=== PATIENT | female | born 1985 | race Caucasian/White ===

== ENCOUNTER 2019-05-24 21:58 | Inpatient (IN) | payer MEDICARE, MEDICAID ==
[~2019-05-24] VITALS: Ht 165.1 cm; Wt 84.4 kg
[~2019-05-24 21:58] MED LIST: AMBIEN10 MG ORAL; CIPROFLOXACIN500 M2 ORAL; DIVALPROEX SOD250 M1 PO; DIVALPROEX SOD500 M2 PO; QUETIAPINE FUMA50 MG ORAL
[2019-05-24 22:05] VITALS: BP 96/60
[2019-05-24 22:10] VITALS: BP 96/60
[2019-05-24 22:35] LABS: BASOPHILS % (AUTO) 0.8 % (0.0-2.0); HEMATOCRIT 36.8 % (37.0-47.0); LYMPHOCYTES % (AUTO) 45.3 % (20.0-45.0); MEAN CORPUSCULAR VOLUME 86 FL (80-99); MONOCYTES % (AUTO) 10.6 % (1.0-10.0); NEUTROPHILS % (AUTO) 42.3 % (45.0-75.0); PLATELET COUNT 247 K/UL (150-450); RED BLOOD COUNT 4.25 M/UL (4.20-5.40); RED CELL DISTRIBUTION WIDTH 12.3 % (11.6-14.8); WHITE BLOOD COUNT 5.8 K/UL (4.8-10.8)
--- NOTE | 2019-05-24 22:43 | NUR ---
ED Nurse Note: Patient was BIBA from [facility] due to agressive behavioral complain. Patient presented happy, laughing, talkactive. AAO x4, VSS at this time, skin is dry warm to touch.
[2019-05-24 23:00] LABS: ANION GAP 4 mmol/L (5-15); BLOOD UREA NITROGEN 26 mg/dL (7-18); CALCIUM 8.9 MG/DL (8.5-10.1); CARBON DIOXIDE 30 MMOL/L (21-32); CHLORIDE 103 MMOL/L (98-107); CREATININE 1.3 MG/DL (0.55-1.30); POTASSIUM 3.8 MMOL/L (3.5-5.1); SODIUM 137 MMOL/L (136-145)
[2019-05-24 23:01] LABS: APPEARANCE,URINE CLEAR; BILIRUBIN, URINE NEGATIVE (NEGATIVE); COLOR,URINE PALE YELLOW; GLUCOSE, URINE (UA) NEGATIVE (NEGATIVE); KETONES,URINE 1+ (NEGATIVE); LEUKOCYTE ESTERASE ,URINE 3+ (NEGATIVE); NITRITE,URINE NEGATIVE (NEGATIVE); PH,URINE 6 (4.5-8.0); PROTEIN,URINE 1+ (NEGATIVE); UROBILINOGEN,URINE NORMAL MG/DL (0.0-1.0)
[2019-05-24 23:04] LABS: ALANINE AMINOTRANSFERASE 14 U/L (12-78); ALBUMIN 3.5 G/DL (3.4-5.0); ALBUMIN/GLOBULIN RATIO 0.9 (1.0-2.7); ALKALINE PHOSPHATASE 45 U/L (46-116); ASPARTATE AMINO TRANSFERASE 11 U/L (15-37); BILIRUBIN,TOTAL 0.2 MG/DL (0.2-1.0)
--- NOTE | 2019-05-24 23:15 | Emergency Room Report ---
History of Present Illness General Chief Complaint: Behavioral Complaint Source: Patient, Medical Record, EMS Present Illness HPI This is a 34-year-old female who is a resident at a [facility] facility. She was sent to the ER with chief complaint of psychiatric evaluation. She has a history of schizophrenia. She was noted to have increased behavior, being hypersexual, shouting, yelling and hitting staff. Here patient is calm. She denies any complaint. No nausea no vomiting. No fever chills but no chest pain. Similar symptom in the past. 3 weeks ago she was seen at [facility]. Per EMS, patient is not taking her psychiatric medication. Allergies: Coded Allergies: HALOPERIDOL (Unverified Allergy, Unknown, 05/09/14) RISPERIDONE (Unverified Allergy, Unknown, 05/09/14) Patient History Past Medical History: see triage record, old chart reviewed, schizophrenia Past Surgical History: none Family History: none Social History: other Now: No Immunizations: UTD, other Reviewed Nursing Documentation: PMH: Agreed; PSxH: Agreed Nursing Documentation-PMH Hx Cardiac Problems: No - Hyperlipidemia, Anemia History Of Psychiatric Problem: Yes - Bipolar, Schizophrenia Review of Systems ENT: Denies: sore throat Cardiovascular: Denies: chest pain, palpitations Gastrointestinal/Abdominal: Denies: nausea, vomiting, diarrhea Musculoskeletal: Denies: back problems Skin: Denies: rash Neurological: Denies: HERNANDEZ, seizures All Other Systems: negative except mentioned in HPI Physical Exam Vital Signs Date Time Temp Pulse Resp B/P (MAP) Pulse Ox O2 Delivery O2 Flow Rate FiO2 05/24/19 21:50 98.6 110 16 96/60 (72) 98 Room Air Vitals unremarkable Sp02 EP Interpretation: reviewed, normal General Appearance: alert/responsive, no apparent distress, non-toxic Head: normocephalic, atraumatic Eyes: PERRL, EOMI ENT: oropharynx normal Neck: supple/symm/no masses Respiratory: effort normal, no rhonchi, no wheezing Cardiovascular: no murmur, gallop, rub Gastrointestinal: non-tender, no mass, non-distended, no rebound/guarding, normal bowel sounds Musculoskeletal: gait & station normal Neurologic: oriented x3, sensory intact, motor strength/tone normal Skin: no rash, normal palpation Medical Decision Making Diagnostic Impression: Primary Impression: Behavioral disorder ER Course Patient presents with a behavioral disorder and aggressiveness. No evidence of any infection. She was redirectable here. No evidence of drug use. Better after dose of Zyprexa. I discussed the case with Dr. Rivero who will admit and will get psych consult. Last Vital Signs Date Time Temp Pulse Resp B/P (MAP) Pulse Ox O2 Delivery O2 Flow Rate FiO2 05/24/19 22:05 110 16 Room Air 05/24/19 22:05 98.6 96/60 98 Status: improved Disposition: ADMITTED INPATIENT Condition: Serious Referrals: Fede Rivero DO (PCP) Camacho Dickinson MD May 24, 2019 23:15
--- NOTE | 2019-05-24 23:40 | NUR ---
NURSE NOTES: Pt received from ER, calm at the moment and asking for food, explained that I have to get admitting orders, no c/o pain or signs of distress, able to make needs known, ambulatory, no skin issues, will continue to monitor.
[2019-05-24] MEDS ORDERED: Miralax 17gm pkt ORAL PRN (23:45)
[2019-05-24] MEDS ORDERED: Zolpidem 5mg tab ORAL PRN (23:45)
[2019-05-24] MEDS ORDERED: Morphine Sulfate 2mg/ml Inj(IV/IM USE ONLY) IVP PRN (23:45)
[2019-05-24] MEDS ORDERED: LORazepam Inj 2mg/ml 1ml IV PRN (23:45)
--- NOTE | 2019-05-24 23:58 | NUR ---
ED Nurse Note: Patient was admited to the [facility] due to behavioral complain. AAO x4, VSS at this time , skin is dry warm to touch. Patient was transfered to the unit via gurney, with all belongings.
[2019-05-25] VITALS: BP 110/61
[2019-05-25 04:00] VITALS: BP 129/73
--- NOTE | 2019-05-25 07:00 | NUR ---
HAND-OFF: Report given to YESSENIA Lou.
--- NOTE | 2019-05-25 07:40 | NUR ---
NURSE NOTES: Nurse report given by SULTANA Campos. Patient's anxious and pacing along the hallway. Denies pain, no s/s of distress or SOB. Patient pulled out IV site at night according to SULTANA Campos and refused to have IV reinserting. Ambulating well. Will continue to monitor closely.
--- NOTE | 2019-05-25 07:45 | NUR ---
HAND-OFF: Report given to SULTANA Gunter.
[2019-05-25 08:00] VITALS: BP 129/82
[2019-05-25] MEDS: Depakote ER 500mg tab ORAL SCH ×2 (09:00→18:00)
--- NOTE | 2019-05-25 10:00 | NUR ---
NURSE NOTES: Patient wanders around the hallway and refused to stay in her room. Attempted to go into other patients room and tried to remove her clothes. Reeducated and reoriented the patient. She agreed to keep her clothes on but refused to stay in the room. Charged nurse is aware.
--- NOTE | 2019-05-25 11:15 | History and Physical Report ---
DATE OF ADMISSION: 05/24/2019 DATE AND TIME SEEN: 05/25/2019 at 9 a.m. CONSULTANTS: 1. Lashell Zimmerman M.D. 2. Kartik Rand M.D. CHIEF COMPLAINT: Agitation and aggressive behavior. BRIEF HISTORY: This is a 34-year-old female from [facility], presented with above-mentioned diagnoses, admitted to medical floor for further treatment. Currently, walking hallway, slightly confused, but calm. No complaint. REVIEW OF SYSTEMS: No chest pain. No shortness of breath. No nausea, vomiting, or diarrhea. PAST MEDICAL HISTORY: Hypertension and psych history. PAST SURGICAL HISTORY: None. MEDICATIONS: Include , Seroquel, morphine, polyethylene glycol, lorazepam, zolpidem, and Zyprexa. ALLERGIES: Haldol and risperidone. SOCIAL HISTORY: No smoking. Positive alcohol. No intravenous drug abuse. FAMILY HISTORY: Noncontributory. PHYSICAL EXAMINATION: GENERAL: Slightly calm in hallway, oriented x3, no acute distress. VITAL SIGNS: Temperature is 98 degrees, pulse 90, respirations 19, blood pressure 129/73. CARDIOVASCULAR: No murmurs. LUNGS: Distant and clear. ABDOMEN: Bowel sounds positive. Nontender. Nondistended. EXTREMITIES: No cyanosis, clubbing, or edema. NEUROLOGIC: The patient's cranial nerves II through XII grossly intact. Deep tendon reflexes 2+. Muscle strength 4/5. LABORATORY DATA: Labs at this time show CBC is normal. BMP show BUN of 26, otherwise AST 11, alkaline phosphatase 49, otherwise normal. Urinalysis is 3+ leukocyte esterase. Urine tox is salicylate 1.3. ASSESSMENT: 1. Agitation. 2. Aggressive behavior. 3. Hypertension. 4. UTI. PLAN: 1. Antibiotics per Infectious Disease. 2. Psych treatment. 3. Dietary followup. 4. Transfer to psych. 5. We will continue to follow the patient. Fede Rivero D.O. DR: ALISE JOB#: [id number] CC:
[2019-05-25 12:00] VITALS: BP 108/73
[2019-05-25 16:00] VITALS: BP 110/77
--- NOTE | 2019-05-25 19:00 | NUR ---
HAND-OFF: Report given to SULTANA Campos. Plan of care endorsed.
--- NOTE | 2019-05-25 19:20 | NUR ---
NURSE NOTES: Pt received walking up and down the hallway, no c/o pain or signs of distress, no signs of aggressive behavior or agitation, will continue to monitor, received report that pt refused all medication
--- NOTE | 2019-05-25 19:47 | Consultation ---
History of Present Illness General Chief Complaint: Behavioral Complaint Present Illness Allergies: Coded Allergies: HALOPERIDOL (Unverified Allergy, Unknown, 05/09/14) RISPERIDONE (Unverified Allergy, Unknown, 05/09/14) Medication History Scheduled Ciprofloxacin Hcl* (Ciprofloxacin Hcl*), 500 MG ORAL Q12H Divalproex Sodium (Divalproex Sodium Er), 250 MG PO BID, (Reported) Divalproex Sodium (Divalproex Sodium Er), 500 MG PO BID, (Reported) Quetiapine Fumarate* (Quetiapine Fumarate*), 100 MG ORAL BID, (Reported) Scheduled PRN Zolpidem Tartrate* (Ambien*), 10 MG ORAL BEDTIME PRN for Restlessness Patient History Healthcare decision maker Resuscitation status Full Code Advanced Directive on File Physical Exam Last 24 Hour Vital Signs Date Time Temp Pulse Resp B/P (MAP) Pulse Ox O2 Delivery O2 Flow Rate FiO2 05/25/19 16:00 98.0 78 19 110/77 (88) 97 05/25/19 12:00 96.0 73 19 108/73 (85) 96 05/25/19 09:00 Room Air 05/25/19 08:00 97.4 79 19 129/82 (98) 99 05/25/19 04:00 98.6 90 19 129/73 (91) 96 05/25/19 00:00 97.7 94 19 110/61 (77) 96 05/24/19 23:48 Room Air 05/24/19 22:10 98.6 78 16 96/60 98 Room Air 05/24/19 22:10 98.6 16 96/60 98 Room Air 05/24/19 22:05 110 16 Room Air 05/24/19 22:05 98.6 16 96/60 98 Room Air 05/24/19 21:50 98.6 110 16 96/60 (72) 98 Room Air Intake and Output 05/24/19 05/25/19 18:59 06:59 Intake Total 1020 ml Balance 1020 ml Intake Oral 1020 ml # Voids 1 Laboratory Tests Test 05/24/19 22:25 White Blood Count 5.8 K/UL (4.8-10.8) Red Blood Count 4.25 M/UL (4.20-5.40) Hemoglobin 13.0 G/DL (12.0-16.0) Hematocrit 36.8 % (37.0-47.0) L Mean Corpuscular Volume 86 FL (80-99) Mean Corpuscular Hemoglobin 30.5 PG (27.0-31.0) Mean Corpuscular Hemoglobin Concent 35.3 G/DL (32.0-36.0) Red Cell Distribution Width 12.3 % (11.6-14.8) Platelet Count 247 K/UL (150-450) Mean Platelet Volume 6.2 FL (6.5-10.1) L Neutrophils (%) (Auto) 42.3 % (45.0-75.0) L Lymphocytes (%) (Auto) 45.3 % (20.0-45.0) H Monocytes (%) (Auto) 10.6 % (1.0-10.0) H Eosinophils (%) (Auto) 1.0 % (0.0-3.0) Basophils (%) (Auto) 0.8 % (0.0-2.0) Urine Color Pale yellow Urine Appearance Clear Urine pH 6 (4.5-8.0) Urine Specific Bradford 1.015 (1.005-1.035) Urine Protein 1+ (NEGATIVE) H Urine Glucose (UA) Negative (NEGATIVE) Urine Ketones 1+ (NEGATIVE) H Urine Blood Negative (NEGATIVE) Urine Nitrite Negative (NEGATIVE) Urine Bilirubin Negative (NEGATIVE) Urine Urobilinogen Normal MG/DL (0.0-1.0) Urine Leukocyte Esterase 3+ (NEGATIVE) H Urine RBC 0-2 /HPF (0 - 2) Urine WBC 2-4 /HPF (0 - 2) Urine Squamous Epithelial Cells Moderate /LPF (NONE/OCC) H Urine Bacteria Few /HPF (NONE) Urine HCG, Qualitative Negative (NEGATIVE) Sodium Level 137 MMOL/L (136-145) Potassium Level 3.8 MMOL/L (3.5-5.1) Chloride Level 103 MMOL/L (98-107) Carbon Dioxide Level 30 MMOL/L (21-32) Anion Gap 4 mmol/L (5-15) L Blood Urea Nitrogen 26 mg/dL (7-18) H Creatinine 1.3 MG/DL (0.55-1.30) Estimat Glomerular Filtration Rate 47.5 mL/min (>60) Glucose Level 104 MG/DL (74-106) Calcium Level 8.9 MG/DL (8.5-10.1) Total Bilirubin 0.2 MG/DL (0.2-1.0) Aspartate Amino Transf (AST/SGOT) 11 U/L (15-37) L Alanine Aminotransferase (ALT/SGPT) 14 U/L (12-78) Alkaline Phosphatase 45 U/L (46-116) L Total Protein 7.4 G/DL (6.4-8.2) Albumin 3.5 G/DL (3.4-5.0) Globulin 3.9 g/dL Albumin/Globulin Ratio 0.9 (1.0-2.7) L Salicylates Level 1.3 ug/mL (2.8-20) L Urine Opiates Screen Negative (NEGATIVE) Acetaminophen Level < 2 MCG/ML (10-30) L Urine Barbiturates Screen Negative (NEGATIVE) Phencyclidine (PCP) Screen Negative (NEGATIVE) Urine Amphetamines Screen Negative (NEGATIVE) Urine Benzodiazepines Screen Negative (NEGATIVE) Urine Cocaine Screen Negative (NEGATIVE) Urine Marijuana (THC) Screen Negative (NEGATIVE) Serum Alcohol < 3 mg/dL Microbiology Date/Time Source Procedure Growth Status 05/25/19 04:00 Rectum Received Height (Feet): 5 Height (Inches): 5.00 Weight (Pounds): 186 Medications Current Medications Medications (Trade) Dose Ordered Sig/Cherie Route PRN Reason Start Time Stop Time Status Last Admin Dose Admin Acetaminophen (Tylenol) 650 mg Q4H PRN ORAL fever 05/24/19 23:45 06/23/19 23:44 Dextrose (Dextrose 50%) STAT PRN IV Hypoglycemia 05/24/19 23:45 06/23/19 23:44 Divalproex Sodium (Depakote ER) 500 mg BID ORAL 05/25/19 09:00 06/24/19 08:59 Lorazepam (Ativan 2mg/ml 1ml) 0.5 mg Q4H PRN IV For Anxiety 05/24/19 23:45 05/31/19 23:44 Morphine Sulfate (Morphine Sulfate) 1 mg Q4H PRN IVP For Pain 05/24/19 23:45 05/31/19 23:44 Ondansetron HCl (Zofran) 4 mg Q6H PRN IVP Nausea & Vomiting 05/24/19 23:45 06/23/19 23:44 Polyethylene Glycol (Miralax) 17 gm HSPRN PRN ORAL Constipation 05/24/19 23:45 06/23/19 23:44 Quetiapine Fumarate (SEROquel) 100 mg BID ORAL 05/25/19 09:00 06/24/19 08:59 Zolpidem Tartrate (Ambien) 5 mg HSPRN PRN ORAL Insomnia 05/24/19 23:45 05/31/19 23:44 Kartik Rand MD May 25, 2019 19:47
--- NOTE | 2019-05-25 20:50 | NUR ---
NURSE NOTES: Pt walking up and down the hallway partially naked, refusing to put on proper clothing, she offered a male patient a juice and was upset calling me names because I explained to her that she can't go into the male patient's room.
--- NOTE | 2019-05-26 04:00 | NUR ---
NURSE NOTES: Dr. Zimmerman was informed of pt's increasingly aggressive behavior, refusal of all medications, walking around the unit partially naked, endanger of elopement going to [facility] and refusing to come back, Kenneth Simmons called, security on the floor, Dr. Zimmerman Ok for a sitter and to see the patient.
[2019-05-26] MEDS ORDERED: LORazepam Inj 2mg/ml 1ml IV PRN (05:00)
--- NOTE | 2019-05-26 07:27 | NUR ---
HAND-OFF: Report given to SULTANA Zhang.
--- NOTE | 2019-05-26 07:55 | NUR ---
NURSE NOTES: Received pt walking around the hallway. No c/o of pain/distress. Sitter on the hallway with the patient. Received report that pt refused all medication. Will continue to monitor
--- NOTE | 2019-05-26 08:58 | General Progress Note ---
Assessment/Plan Problem List: (1) UTI (urinary tract infection) ICD Codes: N39.0 - Urinary tract infection, site not specified SNOMED: 66706276 (2) HTN (hypertension) ICD Codes: I10 - Essential (primary) hypertension SNOMED: 51090633 (3) Behavioral disorder ICD Codes: F91.9 - Conduct disorder, unspecified SNOMED: 997640368 Status: stable, progressing Assessment/Plan: abx psyc tx psyc transfer cbc bmp am Subjective Constitutional: Reports: weakness Allergies: Coded Allergies: HALOPERIDOL (Unverified Allergy, Unknown, 05/09/14) RISPERIDONE (Unverified Allergy, Unknown, 05/09/14) All Systems: reviewed and negative except above Subjective sl anxious in room Objective Last 24 Hour Vital Signs Date Time Temp Pulse Resp B/P (MAP) Pulse Ox O2 Delivery O2 Flow Rate FiO2 05/25/19 21:00 Room Air 05/25/19 16:00 98.0 78 19 110/77 (88) 97 05/25/19 12:00 96.0 73 19 108/73 (85) 96 05/25/19 09:00 Room Air Intake and Output 05/25/19 05/26/19 19:00 07:00 Intake Total 1250 ml 600 ml Balance 1250 ml 600 ml Intake Oral 1250 ml 600 ml # Voids 3 Height (Feet): 5 Height (Inches): 5.00 Weight (Pounds): 186 General Appearance: confused EENT: normal ENT inspection Neck: normal alignment Cardiovascular: normal peripheral pulses, normal rate, regular rhythm Respiratory/Chest: chest wall non-tender, lungs clear, normal breath sounds Abdomen: normal bowel sounds, non tender, soft Extremities: normal inspection Edema: no edema noted Arm (L), no edema noted Arm (R), no edema noted Leg (L), no edema noted Leg (R), no edema noted Pedal (L), no edema noted Pedal (R), no edema noted Generalized Neurologic: motor weakness Skin: normal pigmentation, warm/dry Fede Rivero DO May 26, 2019 08:58
[2019-05-26] MEDS: Depakote ER 500mg tab ORAL SCH ×2 (09:20→18:00)
[2019-05-26 10:22] LABS: BASOPHILS % (AUTO) 0.6 % (0.0-2.0); EOSINOPHILS % (AUTO) 0.4 % (0.0-3.0); HEMOGLOBIN 13.2 G/DL (12.0-16.0); LYMPHOCYTES % (AUTO) 38.8 % (20.0-45.0); MEAN CORPUSCULAR VOLUME 89 FL (80-99); MONOCYTES % (AUTO) 12.8 % (1.0-10.0); NEUTROPHILS % (AUTO) 47.4 % (45.0-75.0); PLATELET COUNT 232 K/UL (150-450); RED BLOOD COUNT 4.38 M/UL (4.20-5.40); RED CELL DISTRIBUTION WIDTH 12.4 % (11.6-14.8); WHITE BLOOD COUNT 5.6 K/UL (4.8-10.8)
[2019-05-26 10:34] LABS: ANION GAP 6 mmol/L (5-15); BLOOD UREA NITROGEN 17 mg/dL (7-18); CALCIUM 10.4 MG/DL (8.5-10.1); CARBON DIOXIDE 29 MMOL/L (21-32); CHLORIDE 103 MMOL/L (98-107); POTASSIUM 3.5 MMOL/L (3.5-5.1); SODIUM 138 MMOL/L (136-145)
[2019-05-26] MEDS ORDERED: LORazepam Inj 2mg/ml 1ml IM PRN ×2 (11:00→16:00)
[2019-05-26 12:00] VITALS: BP 118/82
--- NOTE | 2019-05-26 13:43 | Pulmonology Progress Note ---
Assessment/Plan Problems: (1) Behavioral disorder (2) HTN (hypertension) (3) Behavioral disorder Assessment/Plan doing better no new complains behavior controlled Subjective ROS Limited/Unobtainable: No Constitutional: Reports: no symptoms HEENT: Repors: no symptoms Respiratory: Reports: no symptoms Allergies: Coded Allergies: HALOPERIDOL (Unverified Allergy, Unknown, 05/09/14) RISPERIDONE (Unverified Allergy, Unknown, 05/09/14) Objective Last 24 Hour Vital Signs Date Time Temp Pulse Resp B/P (MAP) Pulse Ox O2 Delivery O2 Flow Rate FiO2 05/26/19 12:00 97.0 106 20 118/82 (94) 96 05/26/19 09:00 Room Air 05/25/19 21:00 Room Air 05/25/19 16:00 98.0 78 19 110/77 (88) 97 Intake and Output 05/25/19 05/26/19 19:00 07:00 Intake Total 1250 ml 600 ml Balance 1250 ml 600 ml Intake Oral 1250 ml 600 ml # Voids 3 General Appearance: WD/WN HEENT: normocephalic, atraumatic Respiratory/Chest: chest wall non-tender, lungs clear Abdomen: normal bowel sounds, soft, non tender Genitourinary: normal external genitalia Skin: no rash Microbiology Date/Time Source Procedure Growth Status 05/25/19 04:00 Rectum Received Laboratory Tests 05/26/19 10:10: White Blood Count 5.6, Red Blood Count 4.38, Hemoglobin 13.2, Hematocrit 39.0, Mean Corpuscular Volume 89, Mean Corpuscular Hemoglobin 30.1, Mean Corpuscular Hemoglobin Concent 33.8, Red Cell Distribution Width 12.4, Platelet Count 232, Mean Platelet Volume 6.4L, Neutrophils (%) (Auto) 47.4, Lymphocytes (%) (Auto) 38.8, Monocytes (%) (Auto) 12.8H, Eosinophils (%) (Auto) 0.4, Basophils (%) ( Auto) 0.6, Sodium Level 138, Potassium Level 3.5, Chloride Level 103, Carbon Dioxide Level 29, Anion Gap 6, Blood Urea Nitrogen 17, Creatinine 1.0, Estimat Glomerular Filtration Rate > 60, Glucose Level 101, Calcium Level 10.4H Current Medications Medications (Trade) Dose Ordered Sig/Cherie Route PRN Reason Start Time Stop Time Status Last Admin Dose Admin Acetaminophen (Tylenol) 650 mg Q4H PRN ORAL fever 05/24/19 23:45 06/23/19 23:44 Dextrose (Dextrose 50%) STAT PRN IV Hypoglycemia 05/24/19 23:45 06/23/19 23:44 Divalproex Sodium (Depakote ER) 500 mg BID ORAL 05/25/19 09:00 06/24/19 08:59 05/26/19 09:20 Lorazepam (Ativan 2mg/ml 1ml) 1 mg Q6H PRN IM For Anxiety 05/26/19 11:00 06/02/19 04:59 05/26/19 12:58 Morphine Sulfate (Morphine Sulfate) 1 mg Q4H PRN IVP For Pain 05/24/19 23:45 05/31/19 23:44 Ondansetron HCl (Zofran) 4 mg Q6H PRN IVP Nausea & Vomiting 05/24/19 23:45 06/23/19 23:44 Polyethylene Glycol (Miralax) 17 gm HSPRN PRN ORAL Constipation 05/24/19 23:45 06/23/19 23:44 Quetiapine Fumarate (SEROquel) 100 mg BID ORAL 05/25/19 09:00 06/24/19 08:59 05/26/19 09:00 Zolpidem Tartrate (Ambien) 5 mg HSPRN PRN ORAL Insomnia 05/24/19 23:45 05/31/19 23:44 Kartik Rand MD May 26, 2019 13:43
--- NOTE | 2019-05-26 13:57 | Consultation ---
History of Present Illness General Date patient seen: May 26, 2019 Chief Complaint: Behavioral Complaint Present Illness HPI 34 y/o F with hx of schizoaffective disorder,HLD, anemia, SNF resident presented to ED on 05/24 with aggressive behavior, hypersexual. No vomiting, nausea, fever/chills, CP. ID consulted for concern for UTI Allergies: Coded Allergies: HALOPERIDOL (Unverified Allergy, Unknown, 05/09/14) RISPERIDONE (Unverified Allergy, Unknown, 05/09/14) Medication History Scheduled Ciprofloxacin Hcl* (Ciprofloxacin Hcl*), 500 MG ORAL Q12H Divalproex Sodium (Divalproex Sodium Er), 250 MG PO BID, (Reported) Divalproex Sodium (Divalproex Sodium Er), 500 MG PO BID, (Reported) Quetiapine Fumarate* (Quetiapine Fumarate*), 100 MG ORAL BID, (Reported) Scheduled PRN Zolpidem Tartrate* (Ambien*), 10 MG ORAL BEDTIME PRN for Restlessness Patient History Healthcare decision maker Resuscitation status Full Code Advanced Directive on File Patient History Narrative Pmhx: as above Shx: No smoking. Positive alcohol. No intravenous drug abuse. Fhx: non contributory Review of Systems All Other Systems: negative except mentioned in HPI Physical Exam Physical Exam Narrative GENERAL: Slightly calm in hallway, oriented x3, no acute distress. VITAL SIGNS: Temperature is 98 degrees, pulse 90, respirations 19, blood pressure 129/73. CARDIOVASCULAR: No murmurs. LUNGS: Distant and clear. ABDOMEN: Bowel sounds positive. Nontender. Nondistended. EXTREMITIES: No cyanosis, clubbing, or edema. NEUROLOGIC: The patient's cranial nerves II through XII grossly intact. Deep tendon reflexes 2+. Muscle strength 4/5. Last 24 Hour Vital Signs Date Time Temp Pulse Resp B/P (MAP) Pulse Ox O2 Delivery O2 Flow Rate FiO2 05/26/19 12:00 97.0 106 20 118/82 (94) 96 05/26/19 09:00 Room Air 05/25/19 21:00 Room Air 05/25/19 16:00 98.0 78 19 110/77 (88) 97 Intake and Output 05/25/19 05/26/19 19:00 07:00 Intake Total 1250 ml 600 ml Balance 1250 ml 600 ml Intake Oral 1250 ml 600 ml # Voids 3 Laboratory Tests Test 05/26/19 10:10 White Blood Count 5.6 K/UL (4.8-10.8) Red Blood Count 4.38 M/UL (4.20-5.40) Hemoglobin 13.2 G/DL (12.0-16.0) Hematocrit 39.0 % (37.0-47.0) Mean Corpuscular Volume 89 FL (80-99) Mean Corpuscular Hemoglobin 30.1 PG (27.0-31.0) Mean Corpuscular Hemoglobin Concent 33.8 G/DL (32.0-36.0) Red Cell Distribution Width 12.4 % (11.6-14.8) Platelet Count 232 K/UL (150-450) Mean Platelet Volume 6.4 FL (6.5-10.1) L Neutrophils (%) (Auto) 47.4 % (45.0-75.0) Lymphocytes (%) (Auto) 38.8 % (20.0-45.0) Monocytes (%) (Auto) 12.8 % (1.0-10.0) H Eosinophils (%) (Auto) 0.4 % (0.0-3.0) Basophils (%) (Auto) 0.6 % (0.0-2.0) Sodium Level 138 MMOL/L (136-145) Potassium Level 3.5 MMOL/L (3.5-5.1) Chloride Level 103 MMOL/L (98-107) Carbon Dioxide Level 29 MMOL/L (21-32) Anion Gap 6 mmol/L (5-15) Blood Urea Nitrogen 17 mg/dL (7-18) Creatinine 1.0 MG/DL (0.55-1.30) Estimat Glomerular Filtration Rate > 60 mL/min (>60) Glucose Level 101 MG/DL (74-106) Calcium Level 10.4 MG/DL (8.5-10.1) H Height (Feet): 5 Height (Inches): 5.00 Weight (Pounds): 186 Medications Current Medications Medications (Trade) Dose Ordered Sig/Cherie Route PRN Reason Start Time Stop Time Status Last Admin Dose Admin Acetaminophen (Tylenol) 650 mg Q4H PRN ORAL fever 05/24/19 23:45 06/23/19 23:44 Dextrose (Dextrose 50%) STAT PRN IV Hypoglycemia 8/10/19 23:45 06/23/19 23:44 Divalproex Sodium (Depakote ER) 500 mg BID ORAL 05/25/19 09:00 06/24/19 08:59 05/26/19 09:20 Lorazepam (Ativan 2mg/ml 1ml) 1 mg Q6H PRN IM For Anxiety 05/26/19 11:00 06/02/19 04:59 05/26/19 12:58 Morphine Sulfate (Morphine Sulfate) 1 mg Q4H PRN IVP For Pain 05/24/19 23:45 05/31/19 23:44 Ondansetron HCl (Zofran) 4 mg Q6H PRN IVP Nausea & Vomiting 05/24/19 23:45 06/23/19 23:44 Polyethylene Glycol (Miralax) 17 gm HSPRN PRN ORAL Constipation 05/24/19 23:45 06/23/19 23:44 Quetiapine Fumarate (SEROquel) 100 mg BID ORAL 05/25/19 09:00 06/24/19 08:59 05/26/19 09:00 Zolpidem Tartrate (Ambien) 5 mg HSPRN PRN ORAL Insomnia 05/24/19 23:45 05/31/19 23:44 Assessment/Plan Assessment/Plan: Abx: None Assessment: Aggressive behavior -u/a no pyuria, nit neg, leuk +3; sq cell moderate (contaminated specimen); doubt UTI Afebrile No leukocytosis schizoaffective disorder HLD anemia SNF resident Plan: -Continue to monitor off abx -f/u cx -Monitor CBC/CMP, temperatures Thank you for this consultation. Will continue to follow along with you. Discussed with Shari Brar M.D. May 26, 2019 13:57
[2019-05-26] MEDS ORDERED: DiphenhydrAMINE 50mg/ml Inj IM SCH (14:00)
[2019-05-26] MEDS ORDERED: Haloperidol 5mg/ml Inj IM SCH (14:00)
[2019-05-26] MEDS ORDERED: LORazepam Inj 2mg/ml 1ml IM SCH (14:00)
--- NOTE | 2019-05-26 15:49 | NUR ---
NURSE NOTES: Pt was getting out of control, yelling in the hallway to staffs, walking around the unit and down the stairs to first floor without her clothes. RN escorted pt back up with security. Gave her ativan [address] Zimmerman. Per. Dr. Zimmerman, pt is to be transferred to [place]. Followed up with Rosa M thrasher.
[2019-05-26 15:56] VITALS: BP 128/73
--- NOTE | 2019-05-26 19:10 | NUR ---
HAND-OFF: Report given to SULTANA Walton.
--- NOTE | 2019-05-26 19:40 | NUR ---
CASE MANAGEMENT: REVIEW 34Y/O FEMALE BIBA FROM [facility] CC: AGGRESSIVE BEHAVIOR HX BIPOLAR DISORDER & SCHIZOPHRENIA SI: UTI . HTN . T 98.6 HR 110 RR 16 BP 96/60 SAT 98% ROOM AIR BUN 26 AST 11 ALK PHOS 45 IS: ZYPREXA PO X1 ATIVAN IV X1 HALDOL IM X1 BENADRYL IM X1 PATIENT ADMITTED TO MED/SURG UNIT 05/26/2019 DCP: PATIENT IS FROM [facility]
--- NOTE | 2019-05-26 19:42 | NUR ---
NURSE NOTES: Received patient in bed, awake, alert, ambulating in the hallway, able to make her needs known, no IV, MD is aware. Bed is in low position, locked and alarm is on, will continue to monitor for safety and comfort.
[2019-05-26 20:09] VITALS: BP 112/77
--- NOTE | 2019-05-27 02:45 | Consultation ---
DATE OF CONSULTATION: 05/26/2019 CONSULTING PHYSICIAN: Lashell Zimmerman M.D. HISTORY OF PRESENT ILLNESS: The patient is a 34-year-old female, who came in for aggressive behavior. Apparently, she was at [facility], but she left AMA. She was walking down the streets with no clothes on. Police brought her in agitation, altered mental status. I saw and assessed this patient. She is very confused, disorganized, and mood labile. She is very disorganized. hospitalization multiple times before agitated and also combative with the nursing staff. PAST MEDICAL HISTORY: She has neuropathy. ALLERGIES: No known drug allergies. MEDICATIONS: On admission, Seroquel 100 mg twice a day and Depakote 500 mg twice a day. SUBSTANCE ABUSE HISTORY: She has a history of polysubstance abuse. FAMILY PSYCHIATRIC HISTORY: Denies. PAIN ASSESSMENT: 0/10 pain. DEVELOPMENTAL PROBLEMS: Denies. SOCIAL HISTORY: The patient is currently homeless, but she was living at [facility]. PSYCHIATRIC HISTORY: History of schizoaffective, bipolar type. She has multiple psychiatric admissions. STRENGTHS: She is motivated to get better. She is healthy. WEAKNESSES: She is impulsive, homeless. No support system. MENTAL STATUS EXAMINATION: This is a 34-year-old female. Appearance is disheveled. Attitude, irritable and agitated. Affect, guarded and restricted. Intellect, poor. Mood, depressed and anxious. Motor activity, psychomotor agitation. Insight and judgment is poor. DIAGNOSES: 1. Schizoaffective, bipolar type. 2. Medical, neuropathy. 3. Psychosocial stressors financial. Function impairment, severe. PLAN: This patient is taking Seroquel 100 mg twice a day, Depakote 500 mg twice a day, and Ativan 1 mg every 6 hours IV as needed for anxiety and agitation, and transfer to [facility]. Transfer to psych when medically cleared 5150 if possible. 20 minutes of cognitive behavioral therapy provided to help her identify automatic negative thoughts and help her convert those negative thoughts to more positive thoughts to reduce depression, anxiety, and mood lability. Chart reviewed. Discussed with staff. Seen and assessed in her room. Lashell Zimmerman M.D. DR: JAMISON JOB#: [id number] CC:
--- NOTE | 2019-05-27 07:00 | NUR ---
HAND-OFF: Report given to Basil WEINBERG.
--- NOTE | 2019-05-27 07:01 | NUR ---
NURSE NOTES: Received patient sleeping comfortably in bed. No IV MD aware. Sitter at bedside. Bed at lowest level with 2 side rails up. Call light within reach. In no apparent distress at this time. Will continue to monitor
[2019-05-27] MEDS: Depakote ER 500mg tab ORAL SCH ×2 (08:04→17:27)
--- NOTE | 2019-05-27 10:56 | NUR ---
Social Work This SW received notification regarding patient will need transfer to [facility]. This Sw spoke with intake @ [phone] and faxed chart information to fax [phone]. Pending evaluation at this time.
--- NOTE | 2019-05-27 11:02 | Infectious Diseases Prog Note ---
Assessment/Plan Assessment/Plan Abx: None Assessment: Aggressive behavior -u/a no pyuria, nit neg, leuk +3; sq cell moderate (contaminated specimen); doubt UTI Afebrile No leukocytosis schizoaffective disorder HLD anemia SNF resident Plan: -Continue to monitor off abx -f/u cx -Monitor CBC/CMP, temperatures Thank you for this consultation. Will continue to follow along with you. Discussed with RN Subjective Allergies: Coded Allergies: HALOPERIDOL (Unverified Allergy, Unknown, 05/09/14) RISPERIDONE (Unverified Allergy, Unknown, 05/09/14) Subjective afebrile no leukocytosis off abx Objective Vital Signs Last 24 Hour Vital Signs Date Time Temp Pulse Resp B/P (MAP) Pulse Ox O2 Delivery O2 Flow Rate FiO2 05/27/19 09:00 Room Air 05/26/19 21:10 Room Air 05/26/19 20:09 97.6 87 18 112/77 (89) 05/26/19 15:56 96.8 89 21 128/73 (91) 96 05/26/19 12:00 97.0 106 20 118/82 (94) 96 Height (Feet): 5 Height (Inches): 5.00 Weight (Pounds): 186 Objective GENERAL: Slightly calm in hallway, oriented x3, no acute distress. VITAL SIGNS: Temperature is 98 degrees, pulse 90, respirations 19, blood pressure 129/73. CARDIOVASCULAR: No murmurs. LUNGS: Distant and clear. ABDOMEN: Bowel sounds positive. Nontender. Nondistended. EXTREMITIES: No cyanosis, clubbing, or edema. NEUROLOGIC: The patient's cranial nerves II through XII grossly intact. Deep tendon reflexes 2+. Muscle strength 4/5. Microbiology Date/Time Source Procedure Growth Status 05/25/19 04:00 Nasal Nares MRSA Culture - Final NO METHICILLIN RESISTANT STAPH AUREUS... Complete 05/25/19 23:49 Rectum VRE Culture - Final NO VANCOMYCIN RESISTANT ENTEROCOCCUS ... Complete 05/25/19 04:00 Rectum - Final NO CARBAPENEM-RESISTANT ENTEROBACTERI... Complete Current Medications Medications (Trade) Dose Ordered Sig/Cherie Route PRN Reason Start Time Stop Time Status Last Admin Dose Admin Acetaminophen (Tylenol) 650 mg Q4H PRN ORAL fever 05/24/19 23:45 06/23/19 23:44 Dextrose (Dextrose 50%) STAT PRN IV Hypoglycemia 05/24/19 23:45 06/23/19 23:44 Divalproex Sodium (Depakote ER) 500 mg BID ORAL 05/25/19 09:00 06/24/19 08:59 05/27/19 08:04 Lorazepam (Ativan 2mg/ml 1ml) 2 mg Q6H PRN IM For Anxiety 05/26/19 16:00 06/02/19 15:59 Morphine Sulfate (Morphine Sulfate) 1 mg Q4H PRN IVP For Pain 05/24/19 23:45 05/31/19 23:44 Ondansetron HCl (Zofran) 4 mg Q6H PRN IVP Nausea & Vomiting 05/24/19 23:45 06/23/19 23:44 Polyethylene Glycol (Miralax) 17 gm HSPRN PRN ORAL Constipation 05/24/19 23:45 06/23/19 23:44 Quetiapine Fumarate (SEROquel) 100 mg BID ORAL 05/25/19 09:00 06/24/19 08:59 05/27/19 08:05 Zolpidem Tartrate (Ambien) 5 mg HSPRN PRN ORAL Insomnia 05/24/19 23:45 05/31/19 23:44 Shari Santos M.D. May 27, 2019 11:02
--- NOTE | 2019-05-27 14:06 | Pulmonology Progress Note ---
Assessment/Plan Problems: (1) Behavioral disorder (2) HTN (hypertension) (3) Behavioral disorder Assessment/Plan doing better no new complains behavior controlled Subjective ROS Limited/Unobtainable: No Constitutional: Reports: no symptoms HEENT: Repors: no symptoms Respiratory: Reports: no symptoms Allergies: Coded Allergies: HALOPERIDOL (Unverified Allergy, Unknown, 05/09/14) RISPERIDONE (Unverified Allergy, Unknown, 05/09/14) Objective Last 24 Hour Vital Signs Date Time Temp Pulse Resp B/P (MAP) Pulse Ox O2 Delivery O2 Flow Rate FiO2 05/27/19 09:00 Room Air 05/26/19 21:10 Room Air 05/26/19 20:09 97.6 87 18 112/77 (89) 05/26/19 15:56 96.8 89 21 128/73 (91) 96 Intake and Output 05/26/19 05/27/19 19:00 07:00 Intake Total 360 ml Balance 360 ml Intake Oral 360 ml # Voids 5 General Appearance: WD/WN HEENT: normocephalic, atraumatic Respiratory/Chest: chest wall non-tender, lungs clear Breasts: no masses Cardiovascular: regular rhythm Abdomen: normal bowel sounds, non distended Extremities: no cyanosis Microbiology Date/Time Source Procedure Growth Status 05/25/19 04:00 Nasal Nares MRSA Culture - Final NO METHICILLIN RESISTANT STAPH AUREUS... Complete 05/25/19 23:49 Rectum VRE Culture - Final NO VANCOMYCIN RESISTANT ENTEROCOCCUS ... Complete 05/25/19 04:00 Rectum - Final NO CARBAPENEM-RESISTANT ENTEROBACTERI... Complete Current Medications Medications (Trade) Dose Ordered Sig/Cherie Route PRN Reason Start Time Stop Time Status Last Admin Dose Admin Acetaminophen (Tylenol) 650 mg Q4H PRN ORAL fever 05/24/19 23:45 06/23/19 23:44 Dextrose (Dextrose 50%) STAT PRN IV Hypoglycemia 05/24/19 23:45 06/23/19 23:44 Divalproex Sodium (Depakote ER) 500 mg BID ORAL 05/25/19 09:00 06/24/19 08:59 05/27/19 08:04 Lorazepam (Ativan 2mg/ml 1ml) 2 mg Q6H PRN IM For Anxiety 05/26/19 16:00 06/02/19 15:59 Morphine Sulfate (Morphine Sulfate) 1 mg Q4H PRN IVP For Pain 05/24/19 23:45 05/31/19 23:44 Ondansetron HCl (Zofran) 4 mg Q6H PRN IVP Nausea & Vomiting 05/24/19 23:45 06/23/19 23:44 Polyethylene Glycol (Miralax) 17 gm HSPRN PRN ORAL Constipation 05/24/19 23:45 06/23/19 23:44 Quetiapine Fumarate (SEROquel) 100 mg BID ORAL 05/25/19 09:00 06/24/19 08:59 05/27/19 08:05 Zolpidem Tartrate (Ambien) 5 mg HSPRN PRN ORAL Insomnia 05/24/19 23:45 05/31/19 23:44 Kartik Rand MD May 27, 2019 14:06
--- NOTE | 2019-05-27 14:56 | General Progress Note ---
Assessment/Plan Problem List: (1) UTI (urinary tract infection) ICD Codes: N39.0 - Urinary tract infection, site not specified SNOMED: 26128068 (2) HTN (hypertension) ICD Codes: I10 - Essential (primary) hypertension SNOMED: 63321456 (3) Behavioral disorder ICD Codes: F91.9 - Conduct disorder, unspecified SNOMED: 707487463 Status: stable, progressing Assessment/Plan: abx psyc tx psyc transfer cbc bmp am Subjective Constitutional: Reports: weakness Allergies: Coded Allergies: HALOPERIDOL (Unverified Allergy, Unknown, 05/09/14) RISPERIDONE (Unverified Allergy, Unknown, 05/09/14) All Systems: reviewed and negative except above Subjective sl anxious in room Objective Last 24 Hour Vital Signs Date Time Temp Pulse Resp B/P (MAP) Pulse Ox O2 Delivery O2 Flow Rate FiO2 05/27/19 09:00 Room Air 05/26/19 21:10 Room Air 05/26/19 20:09 97.6 87 18 112/77 (89) 05/26/19 15:56 96.8 89 21 128/73 (91) 96 Intake and Output 05/26/19 05/27/19 19:00 07:00 Intake Total 360 ml Balance 360 ml Intake Oral 360 ml # Voids 5 Height (Feet): 5 Height (Inches): 5.00 Weight (Pounds): 186 General Appearance: confused EENT: normal ENT inspection Neck: normal alignment Cardiovascular: normal peripheral pulses, normal rate, regular rhythm Respiratory/Chest: chest wall non-tender, lungs clear, normal breath sounds Abdomen: normal bowel sounds, non tender, soft Extremities: normal inspection Edema: no edema noted Arm (L), no edema noted Arm (R), no edema noted Leg (L), no edema noted Leg (R), no edema noted Pedal (L), no edema noted Pedal (R), no edema noted Generalized Neurologic: motor weakness Skin: normal pigmentation, warm/dry Fede Rivero DO May 27, 2019 14:56
--- NOTE | 2019-05-27 15:23 | NUR ---
SS note Intake, Amanda from [facility] sending out a clinician for with goal for transfer this evening. Nursing aware to transfer after hold has been placed/will get orders, room number and arrange transportation.
--- NOTE | 2019-05-27 19:00 | NUR ---
NURSE NOTES:Patient received from !:1 sitBaker .Patient wanders around in the Hallway .confused but calm .Patient stated " I wan't long shirt and long socks' Patient refused to wear hospital gown.and agreed to stay in her room . re oriented and re educated the patient .and agreed to stay in her room .safety/ fall precautions !:1 sitter (Ana Cristina Zimmerman LVN )at bedside with patient at all times . Patient agreed to go back to bed Patient denies any pain at this time . no s/s of Distress noted . vss, afebrile .Call light within reach . bed in low position at all times will continue to monitor.
--- NOTE | 2019-05-27 19:00 | Progress Note ---
DATE: 05/27/2019 SUBJECTIVE: This is a 34-year-old female patient with aggressive behavior. She has been very irritable, combative, verbally abusive to nursing staff, refusing treatment, very poor insight, neuropsychiatric illness, acting very manic, impulsive, and irritable. MENTAL STATUS EXAMINATION: This is a 34-year-old female. Appearance is disheveled. Attitude, irritable and agitated. Affect, guarded and restricted. Intellect poor. Mood, depressed and anxious. Motor activity, psychomotor agitation. Attention span is poor. Orientation x2. Speech is pressured. Thought process is disorganized and illogical. Insight and judgment is poor. DIAGNOSIS: Schizoaffective, bipolar type. PLAN: Treat her with Seroquel 100 mg twice a day, Depakote 500 mg twice a day, Ativan 1 mg IM every 6 hours p.r.n. anxiety and agitation. Provided with 20 minutes of cognitive behavioral therapy to help her identify automatic negative thoughts and help her convert those negative thoughts to more positive thoughts to reduce depression, anxiety, and mood lability. Chart reviewed. Discussed with staff. Seen and assessed at bedside. Lashell Zimmerman M.D. DR: CHI JOB#: [id number] CC:
--- NOTE | 2019-05-27 19:38 | NUR ---
HAND-OFF: Report given to SULTANA Andres.
--- NOTE | 2019-05-27 19:40 | NUR ---
NURSE NOTES: Received report from SULTANA Weiner. Patient is awake, alert and confused, laying in bed. Stable condition. No IV and MD is aware per AM nurse. Sitter is at bedside. Patient is room air with no signs of distress or SOB. Bed is locked and in lowest position. Call light in reach. Will continue to monitor.
[2019-05-27 19:59] VITALS: BP 139/88
[2019-05-27 22:00] VITALS: BP 120/85
--- NOTE | 2019-05-27 22:18 | NUR ---
NURSE NOTES:Patient combative and Aggressive at 22:18 pm Ativan 2 mg IM given to her Primary nurse and reeducated and re oriented patient and approach calm and speak softer by use patient name. safety/ fall precautions . call light within reach . bed in low position will continue to monitor.
--- NOTE | 2019-05-27 22:19 | NUR ---
NURSE NOTES: Patient became aggressive and combative with her sitter at bedside and the [employer]. PRN Ativan 2 mg given IM. Reeducated and reoriented the patient. Will continue to monitor.
[2019-05-27 23:59] VITALS: BP 124/80
--- NOTE | 2019-05-28 | NUR ---
NURSE NOTES:Patient sleeping comfortably 1:1 sitter ( Ana Cristina Zimmerman l.v.n.) at bedside at all times . will continue to monitor patient.
--- NOTE | 2019-05-28 00:45 | NUR ---
NURSE NOTES: Patient discharged by ambulance to [facility]. Report given to Sylvia at [facility]. Patient's vitals stable. Report given to transporters. Belongings given to transporters.
--- NOTE | 2019-05-29 09:25 | Discharge Summary ---
Discharge Summary Discharge Summary _ DATE OF ADMISSION: 05/24/2019 DATE OF DISCHARGE: 05/28/2019 DISCHARGED BY: Dr. Rivero REASON FOR ADMISSION: 34 years old female with past medical history of schizophrenia, bipolar disorder, anemia, hypertension, resident of care home facility, presented to emergency department for psychiatric evaluation. In the facility patient was noted to be increasingly aggressive, shouting yelling and hitting the staff as well as being hypersexual. In emergency department patient appeared to be calm. She denied any complaint. No nausea, no vomiting. No fever or chills. No chest pain. Patient had similar symptoms in the past. Three weeks ago patient was hospitalized at [facility]. According to nursing facility patient did not take her psychiatric medication , after discharge from the hospital. Upon evaluation vital signs were stable. Laboratory work-up was essentially unremarkable. Urinalysis revealed +1 protein, but no evidence of urinary tract infection. Urine test was negative. Urine toxicology screen was negative. Serum alcohol, salicylate, and Tylenol were all negative. Patient subsequently admitted to medical surgical floor for further psychiatric evaluation and management. CONSULTANTS: pulmonary /instructional services specialist Dr. Rand ID specialist Dr. Santos psychiatrist Dr. Zimmerman [facility] COURSE: Patient admitted to medical surgical floor. ID specialist seen and evaluated patient Urinalysis revealed +3 leukocyte esterase, likely contaminated specimen , since urinalysis was negative for nitrates and no pyuria. Patient remained afebrile, no leukocytosis. Infectious disease specialist doubted urinary tract infection , and recommended to monitor patient off antibiotics. Psychiatrist seen and evaluated patient. Per psychiatrist, patient has schizoaffective disorder bipolar type. Psychiatric medication regimen was optimized. Cognitive behavioral therapy provided. Blood pressure was closely monitored. Patient remained normotensive. No need for antihypertensive medication at this time. Placement in inpatient psychiatric hospital was found and secured. Patient was medically clear for transfer for inpatient psychiatric management. FINAL DIAGNOSES: Schizoaffective disorder bipolar type Hypertension DISCHARGE MEDICATIONS: See Medication Reconciliation list. DISCHARGE INSTRUCTIONS: Patient was discharged to [facility] for inpatient psychiatric management. I have been assigned to dictate discharge summary for this account. I was not involved in the patient's management. Yumiko Buck NP May 29, 2019 09:25
== END 2019-05-28 00:45 | DRG 885 ==
LOC: EDBD 21:58 → EMR 22:20 → EDBEDREQ 22:59 → 4E 23:14
DX: F25.0 Schizoaffective disorder, bipolar type (principal); G62.9 Polyneuropathy, unspecified; I10 Essential (primary) hypertension; Z88.8 Allergy status to other drugs, medicaments and biological substances; R45.1 Restlessness and agitation; Z59.0 Homelessness; F91.9 Conduct disorder, unspecified; D64.9 Anemia, unspecified
CPT/HCPCS: 36415; 80048; 80053; 80307; 80329; 81003; 81025; 85025; 87081; 99285